=== PATIENT | male | born 1965 | race Caucasian/White ===

== ENCOUNTER → 2020-04-16 13:56 | Outpatient (BNVA) | payer MEDICARE, MEDICAID, SELFPAY | PROVIDERS: Visit Provider Anesthesiology | DX: M47.816 Spondylosis without myelopathy or radiculopathy, lumbar region (principal); M51.36 Other intervertebral disc degeneration, lumbar region; N31.9 Neuromuscular dysfunction of bladder, unspecified | CPT/HCPCS: 99212 ==